=== PATIENT | male | born 2000 | race Caucasian/White ===

== ENCOUNTER 2024-08-17 14:18 | Emergency (ER) | payer BC ==
[2024-08-17 14:28] VITALS: BP 109/65; PULSE 69; RESP 16; TEMP 98.6; BMI 18.1
== END 2024-08-17 15:42 | disposition home or self-care (01) ==
LOC: JERFT 14:18
DX: S63.286A Dislocation of proximal interphalangeal joint of right little finger, initial encounter (principal); X58.XXXA Exposure to other specified factors, initial encounter
CPT/HCPCS: 73140-TC-RT-FY; 99283-25